=== PATIENT | female | born 1995 | race African-American/Black ===

== ENCOUNTER 2023-01-10 20:02 | Emergency (ER) | payer SELFPAY ==
[~2023-01-10] VITALS: Ht 175.3 cm; Wt 147.9 kg
[2023-01-10 20:28] VITALS: O2SAT 100
[2023-01-10 21:00] LABS: STREPTOCOCCUS GRP A ANTIGEN NEGATIVE (NEGATIVE)
[2023-01-10 21:22] LABS: INFLUENZAE A&B ANTIGEN (RAPID) NEGATIVE (NEGATIVE)
== END 2023-01-10 22:00 | disposition home or self-care (01) ==
LOC: ER 20:10
DX: R50.9 Fever, unspecified (principal); J02.9 Acute pharyngitis, unspecified; J45.909 Unspecified asthma, uncomplicated; Z20.822 Contact with and (suspected) exposure to COVID-19
CPT/HCPCS: 71046; 83518; 87070; 87400; 99283; U0002